=== PATIENT | female | born 1990 | race Caucasian/White ===

== ENCOUNTER → 2017-03-12 | Outpatient (CLI) | payer OTHER | LOC: FIMAGING 08:56 | PROVIDERS: ATTEND Student in an Organized Health Care Education/Training Program | DX: O99.282 Endocrine, nutritional and metabolic diseases complicating pregnancy, second trimester (principal); O26.612 Liver and biliary tract disorders in pregnancy, second trimester; O26.892 Other specified pregnancy related conditions, second trimester; E03.9 Hypothyroidism, unspecified; D13.4 Benign neoplasm of liver; Z3A.15 15 weeks gestation of pregnancy ==

== ENCOUNTER → 2017-04-28 | Outpatient (CLI) | payer OTHER | LOC: FIMAGING 09:25 | PROVIDERS: ATTEND Student in an Organized Health Care Education/Training Program | DX: Z34.82 Encounter for supervision of other normal pregnancy, second trimester (principal); Z3A.21 21 weeks gestation of pregnancy ==